=== PATIENT | female | born 1955 | race Caucasian/White ===

== ENCOUNTER 2016-09-14 15:21 | Emergency (ER) | payer OTHER ==
[2016-09-14 15:42] VITALS: BP 123/35; PULSE 96; TEMP 98.2; BMI 31.3
--- NOTE | 2016-09-14 16:24 | PDOC ---
History of Present Illness - General Chief Complaint: Injury Stated Complaint: RT ANKLE SPRAIN Time Seen by Provider: 09/14/16 15:54 History Source: Patient Exam Limitations: No Limitations - History of Present Illness Initial Comments: 09/14/16 16:31 Patient came for evaluation of right ankle pain and swelling. States was walking yesterday tripped and sustained an inversion injury to her right foot/ ankle. Has pain and swelling to the lateral malleolus, but is ambulatory. No other injury Occurred: reports: just prior to arrival, this morning Severity: reports: mild, moderate Pain Location: reports: lower extremity (right leg/ankle) Loss of Consciousness: no loss of consciousness Associated Symptoms (Fall): denies symptoms Past History - Travel Traveled outside of the country in the last 30 days: No Close contact w/someone who was outside of country & ill: No - Past Medical History Allergies/Adverse Reactions: Allergies Allergy/AdvReac Type Severity Reaction Status Date / Time No Known Allergies Allergy Verified 09/14/16 15:41 Cancer: Yes (L BREAST) HTN: Yes Thyroid Disease: Yes - Psycho/Social/Smoking Cessation Hx Anxiety: No Suicidal Ideation: No Smoking History: Never smoked Hx Alcohol Use: No Drug/Substance Use Hx: No Substance Use Type: None Review of Systems - Review of Systems Able to Perform ROS?: Yes Is the patient limited Faroese proficient: Yes Constitutional: Yes: See HPI. No: Symptoms Reported, Fever, Loss of Appetite HEENTM: No: Symptoms Reported Respiratory: No: Symptoms reported Musculoskeletal: Yes: Symptoms Reported, See HPI, Joint Pain, Joint Swelling ( right leg ankle) Integumentary: Yes: Symptoms Reported, See HPI, Bruising All Other Systems: Reviewed and Negative *Physical Exam - Vital Signs Last Vital Signs Temp Pulse Resp BP Pulse Ox 98.2 F 96 H 20 123/35 99 09/14/16 15:38 09/14/16 15:38 09/14/16 15:38 09/14/16 15:38 09/14/16 15:38 - Physical Exam General Appearance: Yes: Nourished, Appropriately Dressed, Apparent Distress HEENT: positive: PERRY, Normal ENT Inspection, TMs Normal, Pharynx Normal Respiratory/Chest: positive: Lungs Clear Musculoskeletal: negative: Normal Inspection Extremity: positive: Normal Capillary Refill. negative: Normal Inspection ( swelling and point tenderness to the lateral malleolus, and negative navicular, fifth metatarsal, medial malleoli tenderness. Neurovascular intact to toes, negative squeeze test.), Normal Range of Motion Integumentary: positive: Normal Color, Dry, Warm Neurologic: positive: preformer impregnated fabrics II-XII NML intact, Fully Oriented, Alert, Normal Mood/ Affect, Normal Response, Motor Strength 5/5 Procedures - Splinting Splint Location: Right: Ankle Pre-Proc Neuro Vasc Exam: normal Pre-Made Type: aircast Deejay Bandage: 3" Progress Note - Progress Note Progress Note: Avulsion fracture of distal fibula, Right ankle sprain, Deejay air cast and patient comes supplied with own cane, will follow-up with orthopedist *DC/Admit/Observation/Transfer Diagnosis at time of Disposition: Sprain of right ankle Qualifiers: Encounter type: initial encounter Involved ligament of ankle: unspecified ligament Qualified Code(s): S93.401A - Sprain of unspecified ligament of right ankle, initial encounter Fracture of distal fibula Qualifiers: Encounter type: initial encounter Fracture type: closed Fracture morphology: other fracture Laterality: right Qualified Code(s): S82.831A - Other fracture of upper and lower end of right fibula, initial encounter for closed fracture - Discharge Dispostion Disposition: HOME Condition at time of disposition: Stable Admit: No - Referrals Referrals: Johnny Cannon MD [Primary Care Provider] - Bi Muñoz MD [Staff Physician] - - Patient Instructions Printed Discharge Instructions: DI for Ankle Sprain Additional Instructions: Rest, ice to area on and off for 15 minutes 4-6 times a day Avoid heavy lifting or exercise until pain and swelling is resolved or until further directed Keep area highly elevated to reduce swelling Use splints/Deejay wrap as directed Followup with orthopedist in one to 2 days if not improving, if significantly improved may wait one week for followup with orthopedist May use ibuprofen 2-200 mg tablets every 6 hours as needed for pain - Post Discharge Activity Work/School Note: Back to Work
== END 2016-09-14 17:20 | disposition home or self-care (01) ==
LOC: JERFT 15:21
PROC: 2W3LX1Z Immobilization of Right Lower Extremity using Splint (ICD-10-PCS; principal; 2016-09-14)
DX: S82.831A Other fracture of upper and lower end of right fibula, initial encounter for closed fracture (principal); W01.0XXA Fall on same level from slipping, tripping and stumbling without subsequent striking against object, initial encounter; Y93.01 Activity, walking, marching and hiking; Y92.89 Other specified places as the place of occurrence of the external cause; Y99.8 Other external cause status
CPT/HCPCS: 29515; 73610-TC-RT; 99281-25